=== PATIENT | male | born 1980 | race Caucasian/White ===

== ENCOUNTER 2016-09-04 15:35 | Emergency (ER) | payer OTHER ==
[2016-09-04 15:41] VITALS: BP 150/98
--- NOTE | 2016-09-04 16:18 | ED ---
Throat Pain/Nasal Congestion - HPI Summary HPI Summary: Patient presents with right eye pain after sustaining debris to the eye 2 hours ago. 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 He has never had a corneal abrasion before. +tearing from the eye, rhinorrhea, denies visual disturbances. He is able to open to the eye and there is minimal injection throughout the eye. Denies other complaints or symptoms. 5/10 pain localized to the cornea with worsening symptoms medially. - History of Current Complaint Chief Complaint: EDEyeProblem Time Seen by Provider: 09/04/16 15:53 Hx Obtained From: Patient Onset/Duration: Sudden Onset Severity: Moderate - Allergies/Home Medications Allergies/Adverse Reactions: Allergies Allergy/AdvReac Type Severity Reaction Status Date / Time No Known Allergies Allergy Verified 10/27/15 10:04 PMH/Surg Hx/FS Hx/Imm Hx Previously Healthy: Yes Sensory History: Denies: Hx Contacts or Glasses Opthamlomology History: Denies: Hx Contacts or Glasses - Immunization History Hx Pertussis Vaccination: No Immunizations Up to Date: Unable to Obtain/Confirm Infectious Disease History: No Infectious Disease History: Denies: History Other Infectious Disease, Traveled Outside the [place] in Last 30 Days - Family History Known Family History: Positive: None Family History: no reported cardio vascular issues in family - Social History Occupation: Employed Full-time Lives: With Family Alcohol Use: Occasionally Hx Substance Use: No Substance Use Type: Reports: None Hx Tobacco Use: No Smoking Status (MU): Never Smoked Tobacco Review of Systems Constitutional: Negative Eyes: Other - eye pain Positive: Drainage, Erythema Cardiovascular: Negative Respiratory: Negative Genitourinary: Negative Positive: no symptoms reported, see HPI Musculoskeletal: Negative Skin: Negative Neurological: Negative All Other Systems Reviewed And Are Negative: Yes Physical Exam Triage Information Reviewed: Yes Vital Signs On Initial Exam: Initial Vitals Temp Pulse Resp BP Pulse Ox 97.8 F 68 16 150/98 97 09/04/16 15:38 09/04/16 15:38 09/04/16 15:38 09/04/16 15:38 09/04/16 15:38 Vital Signs Reviewed: Yes Appearance: Positive: Well-Appearing, Well-Nourished Skin: Positive: Warm, Skin Color Reflects Adequate Perfusion Head/Face: Positive: Normal Head/Face Inspection Eyes: Positive: EOMI, CLINTON, Conjunctiva Inflammed Neck: Positive: Supple, No Lymphadenopathy Respiratory/Lung Sounds: Positive: Clear to Auscultation, Breath Sounds Present Cardiovascular: Positive: Normal, RRR, Pulses are Symmetrical in both Upper and Lower Extremities Musculoskeletal: Positive: Normal, Strength/ROM Intact Neurological: Positive: Sensory/Motor Intact, Alert, Oriented to Person Place, Time, Speech Normal Psychiatric: Positive: Normal AVPU Assessment: Alert Procedures - Eye Procedure Alcaine Drops Administered: Yes Diagnostics - Vital Signs Vital Signs Temp Pulse Resp BP Pulse Ox 09/04/16 15:40 97.8 F 71 16 150/98 98 09/04/16 15:38 97.8 F 68 16 150/98 97 - Laboratory Lab Statement: Any lab studies that have been ordered have been reviewed, and results considered in the medical decision making process. EENT Course/Dx - Course Course Of Treatment: Fluoroscein stain shows no uptake. Explored eye thoroughly and no abrasions or FB visualized. Patient made aware and he will return if symptoms become worse. Denies pain at this point. - Differential Diagnoses Differential Diagnoses: Abrasion, Conjunctivitis, Corneal Abrasion, Uveitis - Diagnoses Provider Diagnoses: Eye pain Discharge - Discharge Plan Condition: Stable Disposition: HOME Patient Education Materials: Eye Foreign Body (ED) Referrals: Keanu Doshi MD [Primary Care Provider] - Additional Instructions: Follow up with DR. Rubin as needed If symptoms persist or worsen, return to the ED Flush the eye with saline
== END 2016-09-04 16:11 | disposition home or self-care (01) ==
LOC: ED 15:35
DX: H57.11 Ocular pain, right eye (principal)
CPT/HCPCS: 99281

== ENCOUNTER 2016-09-04 18:55 | Emergency (ER) | payer OTHER ==
[2016-09-04] MEDS ORDERED: Fluorescein Sodium TOPICAL* 1 MG TEST ONE (20:43)
[2016-09-04] MEDS ORDERED: Tobramycin 0.3% OPHTH.SOL* 5 ML BOT (regular eye drops) RIGHT EYE ONE (20:52)
[2016-09-04] MEDS ORDERED: oxyCODONE/Acetamin 5/325 MG* TAB PO ONE (20:53)
--- NOTE | 2016-09-04 21:01 | ED ---
Pam Simms Thomas, scribed for Clive Caban MD on 09/04/16 at 1923 . Throat Pain/Nasal Congestion - HPI Summary HPI Summary: The pt is a 35 y/o M presenting to the ED c/o eye pain. At 11:00 today, he was using a drill and kicked up dust into the air. At 13:00, he began develop eye pain and [place] [facility] [place]. During this ED visit, the pt states that no foreign object was found in his eye, and he was discharged at 16:40. Per EMR, in the pt's previous ED visit fluoroscein stain showed no uptake and MARY Bernal, "explored eye thoroughly and no abrasions or FB was visualized". Shortly after being discharged home, his eye pain significantly worsened and he presented to the ED for the second time today. His eye pain is rated 5/10 in the ED. The pt's pain worsens when he looks to the down and to the left. - History of Current Complaint Chief Complaint: EDEyeProblem Time Seen by Provider: 09/04/16 19:16 Hx Obtained From: Patient Onset/Duration: Lasting Hours - original onset of pain at 13:00, but this bout of pain began shortly after 16:40, when he was discharged, Still Present, Worse Since - being discharged at 16:40 today - Allergies/Home Medications Allergies/Adverse Reactions: Allergies Allergy/AdvReac Type Severity Reaction Status Date / Time No Known Allergies Allergy Verified 10/27/15 10:04 PMH/Surg Hx/FS Hx/Imm Hx Previously Healthy: Yes Endocrine/Hematology History: Denies: Hx Diabetes Cardiovascular History: Denies: Hx Coronary Artery Disease Sensory History: Denies: Hx Contacts or Glasses Opthamlomology History: Denies: Hx Contacts or Glasses Infectious Disease History: No Infectious Disease History: Denies: History Other Infectious Disease, Traveled Outside the [place] in Last 30 Days - Family History Known Family History: Positive: Cardiac Disease - grandfather Negative: Diabetes Family History: no reported cardio vascular issues in family - Social History Alcohol Use: Occasionally Hx Substance Use: No Substance Use Type: Reports: None Hx Tobacco Use: No Smoking Status (MU): Never Smoked Tobacco Review of Systems Constitutional: Negative Negative: Fever Positive: Other - POS: eye pain (worsened when looking down and to the right) ENT: Negative Cardiovascular: Negative Respiratory: Negative Gastrointestinal: Negative Genitourinary: Negative Musculoskeletal: Negative Skin: Negative Neurological: Negative Psychological: Normal All Other Systems Reviewed And Are Negative: Yes Physical Exam Triage Information Reviewed: Yes Vital Signs On Initial Exam: Initial Vitals Temp Pulse Resp BP Pulse Ox 97.7 F 73 17 146/98 98 09/04/16 18:57 09/04/16 18:57 09/04/16 18:57 09/04/16 18:57 09/04/16 18:57 Vital Signs Reviewed: Yes Appearance: Positive: Well-Appearing, Pain Distress - mild discomfort Skin: Positive: Warm Head/Face: Positive: Normal Head/Face Inspection Eyes: Positive: CLINTON, Other: - rt conj injected ovoid are of fluroscein uptake at approx 12 o'clock, no fb seen ENT: Positive: Hearing grossly normal Neck: Positive: Supple Respiratory/Lung Sounds: Positive: Clear to Auscultation, Breath Sounds Present Cardiovascular: Positive: RRR Abdomen Description: Positive: Nontender, Soft Bowel Sounds: Positive: Present Neurological: Positive: Alert, Oriented to Person Place, Time Diagnostics - Vital Signs Vital Signs Temp Pulse Resp BP Pulse Ox 09/04/16 19:16 60 99 09/04/16 19:01 97.7 F 73 16 146/98 98 09/04/16 18:57 97.7 F 73 17 146/98 98 - Laboratory Lab Statement: Any lab studies that have been ordered have been reviewed, and results considered in the medical decision making process. Re-Evaluation - Re-Evaluation First Eval Re-Evaluation Time: 20:54 Change: Improved EENT Course/Dx - Diagnoses Provider Diagnoses: Corneal abrasion Discharge - Discharge Plan Condition: Improved Disposition: HOME Patient Education Materials: Corneal Abrasion (ED) Referrals: Gurpreet Rubin MD [Medical Doctor] - 3 Days (Follow up. ) The documentation as recorded by the Pam cancino Thomas accurately reflects the service I personally performed and the decisions made by , Clive Caban MD.
[2016-09-04 21:24] VITALS: BP 139/95
== END 2016-09-04 21:10 | disposition home or self-care (01) ==
LOC: ED 18:55
DX: S05.00XA Injury of conjunctiva and corneal abrasion without foreign body, unspecified eye, initial encounter (principal); H57.10 Ocular pain, unspecified eye; X58.XXXA Exposure to other specified factors, initial encounter; Y93.9 Activity, unspecified; Y92.9 Unspecified place or not applicable
CPT/HCPCS: 99282; A9270-GY

== ENCOUNTER 2017-06-21 09:24 | Emergency (ER) | payer OTHER ==
[2017-06-21 10:13] VITALS: BP 147/95
--- NOTE | 2017-06-21 11:05 | UC ---
Skin Complaint HPI - HPI Summary HPI Summary: 36 y/o male presents to the urgent c/o been bitten by 4 ticks about 2 weeks ago. Pt reports he removed them from his left arm and back. He doesn't know how long he wright them on. Now he has had subjective low grade fever at home, chills, joint pain, WRIGHT. Pain is 3/10. Pt didn't seek medical attention and has h=not taking anything to alleviate symptoms. He has not seen the bull's eye rash, but is concerned w/ Lyme disease and request treatment. Pt denies SOB, chest pain, abdominal pain, N/V/D. - History of Current Complaint Chief Complaint: UCGeneralIllness Time Seen by Provider: 06/21/17 11:04 Stated Complaint: TICK BITES, FEVER Hx Obtained From: Patient Onset/Duration: Sudden Onset, Lasting Weeks - 2 weeks, Still Present, Worse Since - last week Skin Exposure Onset/Duration: Weeks Ago - 2 weeks ago Timing: Constant Onset Severity: Mild Current Severity: Mild Pain Intensity: 3 Pain Scale Used: 0-10 Numeric Location: Hand (Left) - left forearm and back Character: Redness Aggravating Factor(s): Touch Associated Signs & Symptoms: Positive: Fever, Chills, Rash. Negative: Nausea, Vomiting Related History: Possible Reaction to: Insect - Allergy/Home Medications Allergies/Adverse Reactions: Allergies Allergy/AdvReac Type Severity Reaction Status Date / Time No Known Allergies Allergy Verified 06/21/17 10:13 Review of Systems Constitutional: Fever, Chills, Other - body aches, Skin: Rash - 2 tick bites in left forearm and 2 tick bites on lower back Eyes: Negative ENT: Negative Respiratory: Negative Cardiovascular: Negative Gastrointestinal: Negative Genitourinary: Negative Motor: Negative Musculoskeletal: Arthralgia Neurological: Headache Psychological: Negative Is Patient Immunocompromised?: No All Other Systems Reviewed And Are Negative: Yes PMH/Surg Hx/FS Hx/Imm Hx Previously Healthy: Yes Cardiovascular History: Hypertension - diet control - Surgical History Surgical History: None - Family History Known Family History: Positive: Hypertension, Diabetes - Social History Occupation: Employed Full-time Lives: With Family Alcohol Use: Daily Substance Use Type: None Smoking Status (MU): Never Smoked Tobacco Physical Exam - Summary Physical Exam Summary: Vital Signs Reviewed: Yes General: well developed, well nourished male sitting in the examining table w/ o any apparent distress. Eyes: Positive: Conjunctiva Clear - PERRLA, EOMI ENT: Positive: Normal ENT inspection, Hearing grossly normal, Pharynx normal, TMs normal Neck: Positive: Supple, Nontender, No Lymphadenopathy Respiratory: Positive: Chest nontender, Lungs clear, Normal breath sounds Cardiovascular: Positive: RRR, No Murmur, Pulses Normal Abdomen Description: Positive: Nontender, No Organomegaly, Soft. Negative: CVA Tenderness (R), CVA Tenderness (L) Bowel Sounds: Positive: Present Musculoskeletal: Positive: Strength Intact, ROM Intact, No Edema Neurological Exam: Normal Psychological Exam: Normal Skin: Positive: rashes - Proximal medial aspect of Left fore arm with 2 tick bites and lower back w/ 2 tick bites with surrounding erythema, non tender to palpation. tick no longer present, no swelling or drainage observed. Triage Information Reviewed: Yes Vital Signs: Initial Vital Signs Temp 98.1 F 06/21/17 10:09 Pulse 66 06/21/17 10:09 Resp 18 06/21/17 10:09 BP 147/95 06/21/17 10:09 Pulse Ox 99 06/21/17 10:09 Course/Dx - Course Course Of Treatment: 36 y/o male presents to the urgent c/o been bitten by 4 ticks about 2 weeks ago. Pt reports he removed them from his left arm and back. He doesn't know how long he wright them on. Now he has had subjective low grade fever at home, chills, joint pain, WRIGHT. Pain is 3/10. Pt didn't seek medical attention and has h=not taking anything to alleviate symptoms. He has not seen the bull's eye rash, but is concerned w/ Lyme disease and request treatment. Pt denies SOB, chest pain, abdominal pain, N/V/D. Hx obtained. PE w/ Proximal medial aspect of Left forearm with 2 tick bites and lower back w/ other 2 tick bites with surrounding erythema, non tender to palpation. tick no longer present , no swelling or drainage observed.Pt symptomatic. Pt requesting Tx. Lyme serology ordered. Pt Rx Doxycycline PO .Pt will be notified of results. Pt strongly advised if postive results to f/u with Dr Alcazar or PCP for further management. Pt's BP is elevated today advised to decrease salt in diet, monitor BP and f/u with PCP for further management.Pt understood and agreed with plan of care. - Differential Diagnoses - Skin Complaint Differential Diagnoses: Abscess, Cellulitis, Contact Dermatitis, Scabies, Tick Born Illness - Diagnoses Provider Diagnoses: 1-Lyme disease. 2-Uncontrolled HTN Discharge - Sign-Out/Discharge Documenting (check all that apply): Discharge/Admit/Transfer - D/C home - Discharge Plan Condition: Stable Disposition: HOME Prescriptions: DOXYcycline CAP(*) [DOXYcycline 100MG CAP(*)] 100 mg PO BID #28 cap Patient Education Materials: Lyme Disease (ED), Low-Sodium Diet (ED) Referrals: Ottoniel CUELLAR,Matthew Blanc [Medical Doctor] - If Needed Keanu Doshi MD [Primary Care Provider] - 3 Days Additional Instructions: 1- Please take full course of antibiotic to avoid resistance. 2- Lyme Serology and blood work still pending. You will be notified of results. 3- F/u with DR Alcazar if Lyme serology returns positive, Otherwise f/u w/ your PCP for further management on your symptoms. 4-Your BP is elevated today. please decrease salt in your diet, monitor BP and if it continues to be elevated please f/u with your PCP for further management - Billing Disposition and Condition Condition: STABLE Disposition: HOME
== END 2017-06-21 11:47 | disposition home or self-care (01) ==
LOC: UCEAST 09:24
DX: A69.20 Lyme disease, unspecified (principal); I10 Essential (primary) hypertension
CPT/HCPCS: 86618; 99212; G0463